=== PATIENT | female | born 2000 | race American Indian/Alaskan Native ===

== ENCOUNTER 2021-07-19 17:20 | Emergency (ER) | payer SELFPAY ==
[2021-07-19] MEDS ORDERED: diphenhydrAMINE 50 MG/ML VIAL IV ONE (19:34)
[2021-07-19] MEDS ORDERED: METOCLOPRAMIDE 10 MG/2 ML INJ IV ONE (19:34)
[2021-07-19] MEDS ORDERED: FAMOTIDINE 20 MG/2 ML INJ IV ONE (19:34)
[2021-07-19] MEDS ORDERED: SODIUM CHLORIDE 0.9% 1000 ML 1,000 ML IV ONE ×2 (19:34→23:49)
[2021-07-19] MEDS ORDERED: LACTATED RINGERS 1,000 ML IV ONE (19:34)
[2021-07-19 19:57] LABS: Basophils % (Auto) 0.3 % (0.0-1.8); Eosinophils % (Auto) 0.2 % (0.0-4.3); Hematocrit 36.2 % (30.3-42.9); Lymphocytes # (Auto) 1.4 K/mm3 (1.2-5.4); Lymphocytes % (Auto) 14.3 % (13.4-35.0); Mean Corpuscular HGB Conc 36 % (30-34); Mean Corpuscular Volume 83 fl (79-97); Monocytes # (Auto) 0.9 K/mm3 (0.0-0.8); Monocytes % (Auto) 8.8 % (0.0-7.3); Platelet Count 204 K/mm3 (140-440); Red Blood Count 4.36 M/mm3 (3.65-5.03); Red Cell Distribution Width 15.8 % (13.2-15.2)
[2021-07-19 20:16] LABS: Alanine Aminotransferase 671 units/L (7-56); Albumin 4.2 g/dL (3.9-5); Blood Urea Nitrogen 12 mg/dL (7-17); Calcium 10.5 mg/dL (8.4-10.2); Hemolysis Index 8
[2021-07-19 20:20] LABS: BUN/Creatinine Ratio 24
[2021-07-19 22:46] LABS: Bilirubin,Urine SM (Negative); Blood,Urine NEG (Negative); Color,Urine Amber (Yellow); Mucus,Urine 3+ /HPF
[2021-07-19 22:54] LABS: Ictotest,Urine Negative (Negative)
[2021-07-19] MEDS ORDERED: PROCHLORPERAZINE EDISYLATE 10 MG/2 ML VIAL IV ONE (23:49)
[2021-07-20] MEDS ORDERED: cefTRIAXone/NS 1 GM/50 ML 1 GM/50 ML BAG IV ONE (00:10)
--- NOTE | 2021-07-20 01:12 | Ultrasound Report ---
ULTRASOUND ABDOMEN, LIMITED (RIGHT UPPER QUADRANT) INDICATION: N/V; Elevated LFTs. COMPARISON: None available. FINDINGS: Pancreas: Visualized portion shows no significant abnormality. Liver: Normal. Gallbladder: Normal. Bile ducts: Normal. Common Bile Duct measures 3.3 mm. Free fluid: None. Additional Findings: None. IMPRESSION: Unremarkable right upper quadrant ultrasound. Signer Name: Gregor Sommers MD Signed: 07/20/2021 1:08 AM Workstation Name: [id number]
[2021-07-20] MEDS ORDERED: ONDANSETRON 4 MG/2 ML INJ IV ONE (02:46)
--- NOTE | 2021-07-20 02:52 | Emergency Department Report ---
ED N/V/D HPI - General Chief complaint: Nausea/Vomiting/Diarrhea Stated complaint: DEHYDRATED 12 WKS Source: patient Mode of arrival: Ambulatory Limitations: No Limitations - History of Present Illness Initial comments: Patient is a A0 21-year-old -[place] female who is approximately 12 weeks gestation and who presents to the ED with persistent intractable nausea and vomiting intermittently for the last 4 weeks, worse in the last 5 days. Patient states that she has not been able to keep anything down the last 5 days including water or food. Patient states that she has not had any problem with her since she conceived 12 weeks ago. Patient denies fever, chills, dizziness, syncope, chest pain or shortness of breath, cough, diarrhea, nasal and sinus congestion, sore throat, dysuria, urinary frequency and urgency, vaginal bleeding, vaginal discharge, urinary frequency and urgency, low back pain, change in vision or back pain. MD complaint: nausea, vomiting -: Sudden, week(s) (4) Description of Vomiting: food contents, watery Description of Diarrhea: other (no diarrhea) Associated Abdominal Pain: No Location: diffuse Radiation: none Severity: severe Pain Scale: 0 Quality: dull Consistency: intermittent Improves with: none Worsens with: eating, vomiting Context: other (Hyperemesis gravidarum; 12 weeks gestation) Associated Symptoms: denies other symptoms, headaches, loss of appetite, malaise, nausea/vomiting, weakness, other (Neurolyse fatigue). denies: my algias, chest pain, cough, diaphoresis, fever/chills, rash, dysuria, shortness of breath, syncope - Related Data Previous Rx's Medication Instructions Recorded Last Taken Type Famotidine [Pepcid] 20 mg PO BID #60 tablet 07/20/21 Unknown Rx Ondansetron [Zofran Odt] 4 mg PO Q6HR PRN #20 tab.rapdis 07/20/21 Unknown Rx Promethazine [Phenergan] 25 mg DE Q6HR PRN #20 supp.rect 07/20/21 Unknown Rx cephALEXin [Keflex] 500 mg PO Q8HR #30 cap 07/20/21 Unknown Rx Allergies Allergy/AdvReac Type Severity Reaction Status Date / Time No Known Allergies Allergy Unverified 07/19/21 18:15 ED Review of Systems ROS: Stated complaint: DEHYDRATED 12 WKS Other details as noted in HPI Constitutional: malaise, weakness Eyes: denies: eye pain, eye discharge, vision change ENT: denies: ear pain, throat pain, congestion Respiratory: denies: cough, shortness of breath, wheezing Cardiovascular: denies: chest pain, palpitations Endocrine: no symptoms reported Gastrointestinal: nausea, vomiting. denies: abdominal pain, diarrhea Genitourinary: denies: urgency, dysuria, discharge Musculoskeletal: denies: back pain, joint swelling, arthralgia Skin: denies: rash, lesions Neurological: denies: headache, weakness, paresthesias Psychiatric: denies: anxiety, depression Hematological/Lymphatic: denies: easy bleeding, easy bruising ED Past Medical Hx - Past Medical History Previous Medical History?: No - Surgical History Past Surgical History?: No - Medications Home Medications: Home Medications Medication Instructions Recorded Confirmed Last Taken Type Famotidine [Pepcid] 20 mg PO BID #60 tablet 07/20/21 Unknown Rx Ondansetron [Zofran Odt] 4 mg PO Q6HR PRN #20 tab.rapdis 07/20/21 Unknown Rx Promethazine [Phenergan] 25 mg DE Q6HR PRN #20 supp.rect 07/20/21 Unknown Rx cephALEXin [Keflex] 500 mg PO Q8HR #30 cap 07/20/21 Unknown Rx ED Physical Exam - General Limitations: No Limitations General appearance: alert, in no apparent distress - Head Head exam: Present: atraumatic, normocephalic, normal inspection - Eye Eye exam: Present: normal appearance, PERRL, EOMI Pupils: Present: normal accommodation - ENT ENT exam: Present: normal orophraynx, mucous membranes dry, TM's normal bilaterally, normal external ear exam - Neck Neck exam: Present: normal inspection, full ROM - Respiratory Respiratory exam: Present: normal lung sounds bilaterally. Absent: respiratory distress, wheezes, rales, chest wall tenderness, accessory muscle use, decreased breath sounds, prolonged expiratory - Cardiovascular Cardiovascular Exam: Present: normal rhythm, tachycardia, normal heart sounds. Absent: systolic murmur, diastolic murmur, rubs, gallop - GI/Abdominal GI/Abdominal exam: Present: soft, normal bowel sounds. Absent: tenderness, guarding, rebound, hyperactive bowel sounds, organomegaly - Extremities Exam Extremities exam: Present: normal inspection, full ROM, normal capillary refill - Back Exam Back exam: Present: normal inspection, full ROM. Absent: tenderness, CVA tenderness (R), CVA tenderness (L), muscle spasm, paraspinal tenderness - Neurological Exam Neurological exam: Present: alert, oriented X3, CN II-XII intact, normal gait, reflexes normal - Psychiatric Psychiatric exam: Present: normal affect, normal mood, anxious - Skin Skin exam: Present: warm, dry, intact, normal color. Absent: rash ED Course Vital Signs 07/19/21 07/19/21 07/20/21 18:15 18:35 03:44 Temperature 97.9 F 98.4 F 98.8 F Pulse Rate 148 H 129 H 98 H Respiratory 18 16 16 Rate Blood Pressure 123/80 Blood Pressure 137/95 141/72 [Right] O2 Sat by Pulse 98 99 100 Oximetry ED Medical Decision Making - Lab Data Result diagrams: 07/19/21 19:41 07/19/21 19:41 - Radiology Data Radiology results: report reviewed, image reviewed [address] [address] Ultrasound Report Signed Patient: ANABELL FULLER MR#: [id number] : 2000 Acct:[id number] Age/Sex: 21 / F ADM Date: 07/19/21 Loc: ED Attending Dr: Ordering Physician: LIEN GAN Date of Service: 07/19/21 Procedure(s): US abdomen limited Accession Number(s): [id number] cc: LIEN GAN ULTRASOUND ABDOMEN, LIMITED (RIGHT UPPER QUADRANT) INDICATION: N/V; Elevated LFTs. COMPARISON: None available. FINDINGS: Pancreas: Visualized portion shows no significant abnormality. Liver: Normal. Gallbladder: Normal. Bile ducts: Normal. Common Bile Duct measures 3.3 mm. Free fluid: None. Additional Findings: None. IMPRESSION: Unremarkable right upper quadrant ultrasound. Signer Name: Gregor Sommers MD Signed: 07/20/2021 1:08 AM Workstation Name: [id number] Transcribed By: ES Dictated By: Gregor Sommers MD Electronically Authenticated By: Gregor Sommers MD Signed Date/Time: 07/20/21107 DD/ TD/TT: - Medical Decision Making This is a A0 21-year-old -[place] female who is approximately 12 weeks gestation and who presents to the ED with persistent intractable nausea and vomiting intermittently for the last 4 weeks, worse in the last 5 days. Patient states that she has not been able to keep anything down the last 5 days including water or food. Patient states that she has not had any problem with her since she conceived 12 weeks ago. In the ED, patient is alert and oriented x3 and is not in any distress but is tachycardic but afebrile, and anxious in triage. Patient was treated in the ED with antiemetics, antacids, and given normal saline 2 L IV bolus, in addition to 1 L of lactated Ringer's luís ution. Lab test results were reviewed and showed hyponatremia 132 mmol/L, hypokalemia of 3.2 mmol/L, hypochloremia of 90.5 mmol/L, AST of 286, ALT of 671, alk phos 141, total protein of 8.4, and total bilirubin of 2.60. Urinalysis showed acute urinary tract infection. Patient also received Rocephin 1 g IV x1. This results are likely due to the patient's dehydration following intractable nausea and vomiting without any fluid intake. On reevaluation, patient's tachycardia improved significantly to 100 bpm, and patient passed oral fluid challenge in the ED. Patient was therefore discharged home on antiemetics, antacids and oral antibiotics and advised to follow-up with with her [employer] physician in 3 to 5 days for reevaluation. Patient is advised return to the ED immediately if symptoms get worse. - Differential Diagnosis Dehydration; anxiety; hyperemesis gravidarum; UTI; GERD; Critical care attestation.: If time is entered above; I have spent that time in minutes in the direct care of this critically ill patient, excluding procedure time. ED Disposition Clinical Impression: Hyperemesis gravidarum with dehydration, Acute urinary tract infection, Transaminitis Disposition: 01 HOME / SELF CARE / HOMELESS Is pt being admited?: No Does the pt Need Aspirin: No Condition: Stable Instructions: Hyperemesis Gravidarum, Urinary Tract Infection, Adult, [id number], Morning Sickness, [id number] Additional Instructions: Maintain a clear liquid diet for 1224 hrs., drink plenty of fluids, take medication as needed for nausea and vomiting, take the antibiotics for acute urinary tract infection. Follow-up with your [employer]CHANGE TE[employer] physician in 3 to 5 days for reevaluation. Return to the ED immediately if symptoms get worse. Prescriptions: cephALEXin [Keflex] 500 mg PO Q8HR #30 cap Famotidine [Pepcid] 20 mg PO BID #60 tablet Promethazine [Phenergan] 25 mg DE Q6HR PRN #20 supp.rect PRN Reason: Nausea Ondansetron [Zofran Odt] 4 mg PO Q6HR PRN #20 tab.rapdis PRN Reason: Nausea Referrals: YULIANA DREW MD [Staff Physician] - 3-5 Days Forms: Work/School Release Form(ED) Time of Disposition: 03:01 Print Language: BELGIAN
[2021-07-20 03:45] VITALS: BP 141/72
== END 2021-07-20 03:44 | disposition home or self-care (01) ==
LOC: ED 17:20
DX: O21.1 Hyperemesis gravidarum with metabolic disturbance (principal); O23.41 Unspecified infection of urinary tract in pregnancy, first trimester; O26.891 Other specified pregnancy related conditions, first trimester; R74.01 Elevation of levels of liver transaminase levels; Z3A.12 12 weeks gestation of pregnancy; Z79.899 Other long term (current) drug therapy
CPT/HCPCS: 36415; 76705; 80053; 81001; 83690; 84702; 85025; 87086; 96361; 96365; 96375; 99284; J1200; J2405; J2765; J7030; J7120

== ENCOUNTER 2022-01-21 03:12 | Inpatient (IN) | payer OTHER ==
--- NOTE | 2022-01-21 06:13 | Ultrasound Report ---
OBSTETRIC ULTRASOUND INDICATION: presentation, JUNIOR, EFW COMPARISON: No prior relevant imaging studies are available for comparison. TECHNIQUE: Transabdominal imaging was performed. FINDINGS: Single viable intrauterine is identified. lie: Cephalic. Heart rate: 127 bpm. measurements are as follows: Biparietal diameter 9.7 cm, 39 weeks 3 days Head circumference 34.4 cm, 39 weeks 5 days Abdominal circumference 35.1 cm, 39 weeks 0 days Femur length 7.8 cm, 39 weeks 5 days Estimated weight 3740 g. Amniotic fluid index is 11.3 cm, within normal limits. No placental abnormalities are seen. CONCLUSION: Single viable intrauterine currently in cephalic position with estimated weight of 3740 g. Amniotic fluid index is within normal limits. Signer Name: Farhat Marshall MD Signed: 01/21/2022 6:09 AM Workstation Name: [id number]
[2022-01-21] MEDS ORDERED: LIDOCAINE (2%) 20 MG/1 ML VIAL 20 ML MDV INFILTRATI NR (07:07)
--- NOTE | 2022-01-21 07:07 | History and Physical Report ---
History of Present Illness Date of examination: 01/21/22 Date of admission: 01/21/2022 Chief complaint: Contractions History of present illness: 21 y/o at 39 weeks presents to OBT reporting regular and painful CTX. No VB or LOF. Good FM. In OBT, SVE= 3/50%/-2 --> 4/50%/-2. She is admitted to L&D in labor. Past History Past Medical History: no pertinent history Past Surgical History: no surgical history Family/Genetic History: none Social history: no significant social history - Obstetrical History Expected Date of Delivery: 01/28/22 Actual Gestation: 39 Week(s) 0 Day(s) : 1 Para: 0 Hx # Term Pregnancies: 0 Medications and Allergies Allergies Allergy/AdvReac Type Severity Reaction Status Date / Time No Known Allergies Allergy Unverified 07/19/21 18:15 Home Medications Medication Instructions Recorded Confirmed Last Taken Type Famotidine [Pepcid] 20 mg PO BID #60 tablet 07/20/21 Unknown Rx Ondansetron [Zofran Odt] 4 mg PO Q6HR PRN #20 tab.rapdis 07/20/21 Unknown Rx Promethazine [Phenergan] 25 mg PA Q6HR PRN #20 supp.rect 07/20/21 Unknown Rx cephALEXin [Keflex] 500 mg PO Q8HR #30 cap 07/20/21 Unknown Rx Review of Systems All systems: negative - Vital Signs Vital signs: Vital Signs Pulse BP Pulse Ox 88 117/75 98 01/21/22 04:05 01/21/22 04:05 01/21/22 04:05 Temp Pulse Resp BP Pulse Ox 78 117/75 98 01/21/22 07:00 01/21/22 04:05 01/21/22 07:00 - Physical Exam Breasts: Positive: normal Cardiovascular: Regular rate Lungs: Positive: Normal air movement Abdomen: Positive: normal appearance Genitourinary (Female): Positive: normal external genitalia Vulva: both: normal Vagina: Positive: normal moisture Cervix: Positive: lesion Uterus: Positive: enlarged Adnexa: both: normal Anus/Rectum: Positive: normal perianal skin Extremities: Positive: normal Deep Tendon Reflex Grade: Normal +2 - Obstetrical FHR: category 1 Uterine Contraction Monitor Mode: Palpation Cervical Dilatation: 4 Cervical Effacement Percentage: 50 station: -2 Uterine Contraction Frequency (min): 5 Uterine Contraction Pattern: Regular Uterine Contraction Intensity: Moderate Results All other labs normal. Ultrasound: report reviewed (OB US Limited= SLIUP. Vertex. Fundal placenta. EFW= 3740 g (75th %-ile). JUNIOR= 11.3 cm.) Assessment and Plan - Patient Problems (1) 39 weeks gestation of Current Visit: Yes Status: Acute Plan to address problem: care is up-to-date at [facility]. GBS is (-). Morning team to obtain records from office. (2) Spontaneous onset of labor Current Visit: Yes Status: Acute Plan to address problem: Admit to L&D. Epidural prn. Augment with Pitocin. AROM when possible.
[2022-01-21] MEDS ORDERED: ePHEDrine SULFATE 50 MG/1 ML INJ IV PRN ×2 (08:00→15:15)
[2022-01-21] MEDS ORDERED: BUTORPHANOL 2 MG/1 ML INJ IV PRN (08:00)
[2022-01-21] MEDS ORDERED: ACETAMINOPHEN 325 MG TAB PO PRN (08:00)
[2022-01-21] MEDS ORDERED: fentaNYL 100 MCG/2 ML INJ IV PRN (08:00)
[2022-01-21] MEDS ORDERED: METHYLERGONOVINE MALEATE 0.2 MG/ML VIAL IM PRN (08:00)
[2022-01-21] MEDS ORDERED: ONDANSETRON 4 MG/2 ML INJ IV PRN (08:00)
[2022-01-21] MEDS ORDERED: OXYTOCIN DRIP 30 UNITS/500 ML BAG IV SCH (08:00)
[2022-01-21] MEDS ORDERED: CARBOPROST TROMETHAMINE 250 MCG/1 ML INJ IM PRN (08:00)
[2022-01-21] MEDS ORDERED: TERBUTALINE 1 MG/1 ML INJ SUB-Q PRN (08:00)
[2022-01-21 08:29] LABS: Hematocrit 25.3 % (30.3-42.9); Hemoglobin 8.5 gm/dl (10.1-14.3); Mean Corpuscular HGB Conc 34 % (30-34); Mean Corpuscular Volume 76 fl (79-97); Platelet Count 160 K/mm3 (140-440); Red Blood Count 3.34 M/mm3 (3.65-5.03); Red Cell Distribution Width 18.5 % (13.2-15.2)
[2022-01-21] MEDS: LACTATED RINGERS 1,000 ML IV SCH ×2 (10:00→18:58)
--- NOTE | 2022-01-21 10:56 | Progress Note ---
Assessment and Plan A: IUP@ 39.1 wks GBS neg P: Continue monitoring Epidural as requested Anticipate Subjective - Subjective Date of service: 01/21/22 Principal diagnosis: IUP@39.1 wks Patient reports: movement normal, contractions Objective - Vital Signs Vital Signs: Vital Signs - 12hr 01/21/22 01/21/22 01/21/22 04:05 04:10 04:15 Temperature Pulse Rate 88 93 H 90 Respiratory Rate Blood Pressure 117/75 Blood Pressure [Right] O2 Sat by Pulse 98 99 99 Oximetry O2 Sat by Pulse Oximetry [ Bilateral Throughout] 01/21/22 01/21/22 01/21/22 04:20 04:25 04:30 Temperature Pulse Rate 88 87 87 Respiratory Rate Blood Pressure Blood Pressure [Right] O2 Sat by Pulse 98 98 98 Oximetry O2 Sat by Pulse Oximetry [ Bilateral Throughout] 01/21/22 01/21/22 01/21/22 04:35 04:40 04:45 Temperature Pulse Rate 92 H 95 H 95 H Respiratory Rate Blood Pressure Blood Pressure [Right] O2 Sat by Pulse 98 98 99 Oximetry O2 Sat by Pulse Oximetry [ Bilateral Throughout] 01/21/22 01/21/22 01/21/22 04:50 04:55 05:00 Temperature Pulse Rate 87 81 80 Respiratory Rate Blood Pressure Blood Pressure [Right] O2 Sat by Pulse 99 99 98 Oximetry O2 Sat by Pulse Oximetry [ Bilateral Throughout] 01/21/22 01/21/22 01/21/22 05:05 05:10 05:15 Temperature Pulse Rate 82 89 89 Respiratory Rate Blood Pressure Blood Pressure [Right] O2 Sat by Pulse 98 98 89 Oximetry O2 Sat by Pulse Oximetry [ Bilateral Throughout] 01/21/22 01/21/22 01/21/22 05:20 05:25 05:30 Temperature Pulse Rate 103 H 100 H 94 H Respiratory Rate Blood Pressure Blood Pressure [Right] O2 Sat by Pulse 99 100 98 Oximetry O2 Sat by Pulse Oximetry [ Bilateral Throughout] 01/21/22 01/21/22 01/21/22 05:35 05:40 05:45 Temperature Pulse Rate 102 H 88 86 Respiratory Rate Blood Pressure Blood Pressure [Right] O2 Sat by Pulse 99 99 98 Oximetry O2 Sat by Pulse Oximetry [ Bilateral Throughout] 01/21/22 01/21/22 01/21/22 05:50 05:55 06:00 Temperature Pulse Rate 88 88 92 H Respiratory Rate Blood Pressure Blood Pressure [Right] O2 Sat by Pulse 98 97 98 Oximetry O2 Sat by Pulse Oximetry [ Bilateral Throughout] 01/21/22 01/21/22 01/21/22 06:05 06:10 06:15 Temperature Pulse Rate 103 H 95 H 98 H Respiratory Rate Blood Pressure Blood Pressure [Right] O2 Sat by Pulse 98 100 98 Oximetry O2 Sat by Pulse Oximetry [ Bilateral Throughout] 01/21/22 01/21/22 01/21/22 06:20 06:25 06:30 Temperature Pulse Rate 79 97 H 82 Respiratory Rate Blood Pressure Blood Pressure [Right] O2 Sat by Pulse 97 98 97 Oximetry O2 Sat by Pulse Oximetry [ Bilateral Throughout] 01/21/22 01/21/22 01/21/22 06:35 06:40 06:45 Temperature Pulse Rate 98 H 88 90 Respiratory Rate Blood Pressure Blood Pressure [Right] O2 Sat by Pulse 98 98 97 Oximetry O2 Sat by Pulse Oximetry [ Bilateral Throughout] 01/21/22 01/21/22 01/21/22 06:50 06:55 07:00 Temperature Pulse Rate 84 102 H 78 Respiratory Rate Blood Pressure Blood Pressure [Right] O2 Sat by Pulse 98 97 98 Oximetry O2 Sat by Pulse Oximetry [ Bilateral Throughout] 01/21/22 01/21/22 01/21/22 07:05 07:10 07:15 Temperature Pulse Rate 82 114 H 113 H Respiratory Rate Blood Pressure Blood Pressure [Right] O2 Sat by Pulse 98 98 99 Oximetry O2 Sat by Pulse Oximetry [ Bilateral Throughout] 01/21/22 01/21/22 01/21/22 07:20 07:25 07:30 Temperature Pulse Rate 87 94 H 90 Respiratory Rate Blood Pressure Blood Pressure [Right] O2 Sat by Pulse 99 98 98 Oximetry O2 Sat by Pulse Oximetry [ Bilateral Throughout] 01/21/22 01/21/22 01/21/22 07:35 08:03 08:07 Temperature Pulse Rate 84 84 Respiratory Rate Blood Pressure Blood Pressure [Right] O2 Sat by Pulse 98 98 Oximetry O2 Sat by Pulse 98 Oximetry [ Bilateral Throughout] 01/21/22 01/21/22 01/21/22 08:09 08:12 08:17 Temperature 98.2 F Pulse Rate 82 85 82 Respiratory 12 Rate Blood Pressure Blood Pressure 122/79 [Right] O2 Sat by Pulse 98 98 98 Oximetry O2 Sat by Pulse Oximetry [ Bilateral Throughout] 01/21/22 01/21/22 01/21/22 08:22 08:27 08:32 Temperature Pulse Rate 83 87 89 Respiratory Rate Blood Pressure Blood Pressure [Right] O2 Sat by Pulse 98 97 97 Oximetry O2 Sat by Pulse Oximetry [ Bilateral Throughout] 01/21/22 01/21/22 01/21/22 08:37 08:42 08:47 Temperature Pulse Rate 74 74 76 Respiratory Rate Blood Pressure Blood Pressure [Right] O2 Sat by Pulse 99 99 97 Oximetry O2 Sat by Pulse Oximetry [ Bilateral Throughout] 01/21/22 01/21/22 01/21/22 08:52 08:57 09:02 Temperature Pulse Rate 76 83 76 Respiratory Rate Blood Pressure Blood Pressure [Right] O2 Sat by Pulse 98 97 97 Oximetry O2 Sat by Pulse Oximetry [ Bilateral Throughout] 01/21/22 01/21/22 01/21/22 09:07 09:12 09:17 Temperature Pulse Rate 73 82 84 Respiratory Rate Blood Pressure Blood Pressure [Right] O2 Sat by Pulse 97 97 97 Oximetry O2 Sat by Pulse Oximetry [ Bilateral Throughout] 01/21/22 01/21/22 01/21/22 09:22 09:27 09:32 Temperature Pulse Rate 85 84 77 Respiratory Rate Blood Pressure Blood Pressure [Right] O2 Sat by Pulse 98 97 97 Oximetry O2 Sat by Pulse Oximetry [ Bilateral Throughout] 01/21/22 01/21/22 01/21/22 09:37 09:42 09:47 Temperature Pulse Rate 98 H 83 80 Respiratory Rate Blood Pressure Blood Pressure [Right] O2 Sat by Pulse 98 98 97 Oximetry O2 Sat by Pulse Oximetry [ Bilateral Throughout] 01/21/22 01/21/22 01/21/22 09:52 09:57 10:02 Temperature Pulse Rate 88 91 H 79 Respiratory Rate Blood Pressure Blood Pressure [Right] O2 Sat by Pulse 97 97 97 Oximetry O2 Sat by Pulse Oximetry [ Bilateral Throughout] 01/21/22 01/21/22 01/21/22 10:07 10:12 10:17 Temperature Pulse Rate 92 H 85 88 Respiratory Rate Blood Pressure Blood Pressure [Right] O2 Sat by Pulse 98 98 98 Oximetry O2 Sat by Pulse Oximetry [ Bilateral Throughout] 01/21/22 01/21/22 01/21/22 10:22 10:27 10:32 Temperature Pulse Rate 81 95 H 82 Respiratory Rate Blood Pressure Blood Pressure [Right] O2 Sat by Pulse 97 97 99 Oximetry O2 Sat by Pulse Oximetry [ Bilateral Throughout] 01/21/22 01/21/22 01/21/22 10:37 10:42 10:47 Temperature Pulse Rate 80 91 H 89 Respiratory Rate Blood Pressure Blood Pressure [Right] O2 Sat by Pulse 97 98 97 Oximetry O2 Sat by Pulse Oximetry [ Bilateral Throughout] - Exam Breasts: normal Abdomen: Present: normal appearance, soft, normal bowel sounds Vulva: both: normal Uterus: Present: normal FHR: auscultation normal, category 1 Uterine Contraction Monitor Mode: External Cervical Dilatation: 5 Cervical Effacement Percentage: 60 station: -2 Uterine Contraction Pattern: Irregular Uterine Tone Measurement Phase: Resting Uterine Contraction Intensity: Moderate Extremities: normal - Labs Labs: Abnormal Labs 01/21/22 07:30 RBC 3.34 L Hgb 8.5 L Hct 25.3 L MCV 76 L MCH 25 L RDW 18.5 H Laboratory Results - last 24 hr 01/21/22 01/21/22 01/21/22 07:30 07:30 09:20 WBC 10.3 RBC 3.34 L Hgb 8.5 L Hct 25.3 L MCV 76 L MCH 25 L MCHC 34 RDW 18.5 H Plt Count 160 SARS-CoV-2 (PCR) Negative Blood Type O POSITIVE Antibody Screen Negative
[2022-01-21] MEDS ORDERED: NALOXONE 2 MG/2 ML INJ IV PRN (15:15)
[2022-01-21] MEDS: fentaNYL-BUPIV 2 MCG/ML-0.125% 200 MCG/100 ML BAG EPIDURAL SCH ×2 (15:33→21:31)
--- NOTE | 2022-01-21 15:55 | Anesthesia Consultation ---
Anesthesia Consult and Med Hx Date of service: 01/21/22 - Airway Anesthetic Teeth Evaluation: Poor ROM Head & Neck: Adequate Mental/Hyoid Distance: Adequate Mallampati Class: Class II Intubation Access Assessment: Good - Pulmonary Exam CTA: Yes - Cardiac Exam Cardiac Exam: RRR - Pre-Operative Health Status ASA Pre-Surgery Classification: ASA2 Proposed Anesthetic Plan: Epidural - Pulmonary Hx Smoking: No Hx Asthma: No COPD: No Hx Pneumonia: No - Cardiovascular System Hx Hypertension: No - Central Nervous System Hx Seizures: No Hx Psychiatric Problems: No - Endocrine Hx Renal Disease: No Hx End Stage Renal Disease: No Hx Hypothyroidism: No Hx Hyperthyroidism: No - Hematic Hx Anemia: Yes Hx Sickle Cell Disease: No - Other Systems Hx Alcohol Use: No Hx Substance Use: No
--- NOTE | 2022-01-21 15:56 | Progress Note ---
Labor Epidural - Labor Epidural Start Time: 10:50 Stop Time: 11:01 Performed by:: SHAWN CALHOUN Procedure: Patient is requesting epidural for labor pain. H&P and labs reviewed. Procedure explained, questions answered, consent obtained. Patient placed in sitting position with monitors applied. Timeout performed immediately before start of procedure. Prep/drape in usual sterile fashion. Skin localized 3 mL 1% lidocaine at L[3]-L[4] interspace. 17-gauge Touhy epidural needle advanced to CHERELLE with saline at [8] cm. No blood/CSF noted via epidural needle. Epidural catheter advanced to [12] cm. Negative aspiration for blood and CSF via catheter, negative response to test dose 3 ml 1.5% lidocaine w/ Epi. Sterile dressing applied followed by tape reinforcement. Patient tolerated procedure well. No immediate complications noted.
[2022-01-21] MEDS ORDERED: MINERAL OIL 30 ML ORAL LIQD ONE (19:17)
[2022-01-21] MEDS ORDERED: LIDOCAINE (2%) 20 MG/1 ML VIAL 20 ML MDV INFILTRATI ONE (19:35)
[2022-01-21 21:23] LABS: Creatinine,Urine 77.1 mg/dL (0.1-20.0)
[2022-01-21 22:23] LABS: Basophils % (Auto) 0.2 % (0.0-1.8); Eosinophils % (Auto) 0.1 % (0.0-4.3); Lymphocytes % (Auto) 7.4 % (13.4-35.0); Mean Corpuscular HGB Conc 31 % (30-34); Mean Corpuscular Volume 76 fl (79-97); Monocytes # (Auto) 0.7 K/mm3 (0.0-0.8); Monocytes % (Auto) 5.2 % (0.0-7.3); Platelet Count 155 K/mm3 (140-440); Red Blood Count 4.19 M/mm3 (3.65-5.03); Red Cell Distribution Width 18.6 % (13.2-15.2)
[2022-01-21 22:55] LABS: Alanine Aminotransferase 11 units/L (7-56); Albumin 3.9 g/dL (3.9-5); Blood Urea Nitrogen 7 mg/dL (7-17); Calcium 9.8 mg/dL (8.4-10.2); Hemolysis Index 0; Uric Acid 5.1 mg/dL (3.5-7.6)
[2022-01-21 22:57] LABS: BUN/Creatinine Ratio 12
--- NOTE | 2022-01-22 00:11 | Procedure Note ---
OB Delivery Note - Delivery Date of Delivery: 01/22/22 Surgeon: ANNAMARIA SORTO Estimated blood loss: 300cc - Vaginal Delivery position: OA Intrapartum events: preeclampsia Delivery induction: none Delivery augmentation: rupture of membranes, pitocin Delivery monitor: external FHT, external uterine, internal FHT, internal uterine Route of delivery: Delivery placenta: spontaneous Delivery cord: nuchal cord, 3 umbilical vessels Episiotomy: midline Delivery laceration: 2nd degree Delivery repair: vicryl Anesthesia: local, epidural - A at 1 minute: 8 at 5 minutes: 9 Infant Gender: Male
[2022-01-22] MEDS ORDERED: LANOLIN/ZINC/DIMETHICONE (LANSINOH) 7 GM TP PRN (00:12)
[2022-01-22] MEDS ORDERED: ACETAMINOPHEN 325 MG TAB PO PRN (00:12)
[2022-01-22] MEDS ORDERED: BENZOCAINE/MENTHOL 20/0.5% TOP SPRAY 56 GM TP PRN (00:12)
[2022-01-22] MEDS ORDERED: ONDANSETRON 4 MG/2 ML INJ IV PRN (00:12)
[2022-01-22] MEDS ORDERED: diphenhydrAMINE 25 MG CAP PO PRN (00:12)
[2022-01-22] MEDS ORDERED: MAGNESIUM HYDROXIDE (MOM) ORAL LIQD UDC PO PRN (00:12)
[2022-01-22] MEDS ORDERED: PROMETHAZINE 25 MG TAB PO PRN (00:12)
--- NOTE | 2022-01-22 00:12 | Event Note ---
Date: 01/21/22 BP >= 140/90 No TAVARES, diplopia, RUQ pain, or scotomata. Urine Protein to Creatinine Ratio (UPCR)= 3.80. There is significant proteinuria. Estimated 24 hour urine protein= 5,159 mg I believe that this patient carries the diagnosis of preeclampsia.
--- NOTE | 2022-01-22 02:16 | Post Anesthesia Evaluation ---
- Post Anesthesia Evaluation Patient Participated: Yes Airway Patent: Yes Stable Respiratory Function: Yes Nausea/Vomiting: No Temp > 96.8F: Yes Pain Manageable: Yes Adequeate Hydration: Yes Anesthesia Complications: No Block Receding Appropriately: Yes Patient on Ventilator: No
[2022-01-22 02:35] LABS: Hematocrit 24.6 % (30.3-42.9); Mean Corpuscular HGB Conc 33 % (30-34); Mean Corpuscular Volume 76 fl (79-97); Platelet Count 150 K/mm3 (140-440); Red Blood Count 3.24 M/mm3 (3.65-5.03); Red Cell Distribution Width 18.3 % (13.2-15.2)
[2022-01-22] MEDS: HYDROcodone/ACETAMINOPHEN 5-325 MG TAB PO PRN ×3 (04:49→22:48)
[2022-01-22] MEDS: WITCH HAZEL/ GLYCERIN PAD TP PRN (04:51)
[2022-01-22] MEDS: DOCUSATE SODIUM 100 MG CAP PO SCH ×2 (09:46→22:48)
[2022-01-22] MEDS: PRENATAL VIT27-FE FUMARATE-FOLIC ACID VIT TAB PO SCH (09:46)
[2022-01-22 12:27] LABS: Basophils % (Auto) 0.1 % (0.0-1.8); Eosinophils % (Auto) 0.2 % (0.0-4.3); Hematocrit 25.2 % (30.3-42.9); Hemoglobin 8.2 gm/dl (10.1-14.3); Lymphocytes # (Auto) 1.8 K/mm3 (1.2-5.4); Lymphocytes % (Auto) 12.5 % (13.4-35.0); Mean Corpuscular HGB Conc 33 % (30-34); Mean Corpuscular Volume 76 fl (79-97); Monocytes # (Auto) 0.8 K/mm3 (0.0-0.8); Monocytes % (Auto) 5.5 % (0.0-7.3); Platelet Count 153 K/mm3 (140-440); Red Cell Distribution Width 18.3 % (13.2-15.2)
[2022-01-22] MEDS: AMOXICILLIN/K CLAV 875/125MG TAB PO SCH (16:14)
--- NOTE | 2022-01-22 18:32 | Event Note ---
Date: 01/22/22 pt seen with maternal tacchy and fundal tenderness mild noted. Augmentin added with leucocytosis seen, possibly early signs of endomyometritis. Pt remains afebrile. Routine care otherwise. Pt is breast and bottle feeding and pain controlled with motrin med. Voiding without difficulty. Pain mostly at vaginal area.
[2022-01-23] MEDS: AMOXICILLIN/K CLAV 875/125MG TAB PO SCH ×2 (04:53→17:38)
[2022-01-23] MEDS: PRENATAL VIT27-FE FUMARATE-FOLIC ACID VIT TAB PO SCH (11:26)
[2022-01-23] MEDS: DOCUSATE SODIUM 100 MG CAP PO SCH ×2 (11:27→21:15)
--- NOTE | 2022-01-23 12:34 | Progress Note ---
Assessment and Plan PPD#1 with asymptomatic anemia 1. continue augmentin and repeat cbc now 2. Will discharge pt home later today if wbc improving 3. Routine care Subjective Date of service: 01/23/22 Principal diagnosis: PPD#1 Interval history: pt has no complaints. Pt is breast feeding, denies pelvic pain or heavy vag bleed. Pt is currently taking the augmentin med. denies dysuria. Objective - Constitutional Vitals: Vital Signs - 12hr 01/23/22 01/23/22 08:00 08:24 Temperature 98.2 F Pulse Rate 89 Respiratory 18 Rate Blood Pressure 117/72 O2 Sat by Pulse 99 Oximetry O2 Sat by Pulse 100 Oximetry [ Bilateral Throughout] General appearance: Present: no acute distress - Neck Neck: normal ROM - Respiratory Respiratory effort: normal - Breasts Breasts: deferred - Cardiovascular Rhythm: regular Extremities: No edema - Gastrointestinal General gastrointestinal: Present: soft, non-tender - Genitourinary Female genitourinary: other (Fundus non-tender, lochia small) - Integumentary Integumentary: warm, dry - Labs CBC & Chem 7: 01/22/22 12:10 01/21/22 21:50 Medications & Allergies - Medications Allergies/Adverse Reactions: Allergies No Known Allergies Allergy (Unverified 07/19/21 18:15) Home Medications: Home Medications Medication Instructions Recorded Confirmed Last Taken Type Famotidine [Pepcid] 20 mg PO BID #60 tablet 07/20/21 01/23/22 Unknown Rx Ondansetron [Zofran Odt] 4 mg PO Q6HR PRN #20 tab.rapdis 07/20/21 01/23/22 Unknown Rx Promethazine [Phenergan] 25 mg NE Q6HR PRN #20 supp.rect 07/20/21 01/23/22 Unknown Rx cephALEXin [Keflex] 500 mg PO Q8HR #30 cap 07/20/21 01/23/22 Unknown Rx Active Medications: Generic Name Dose Route Start Last Admin Trade Name Freq PRN Reason Stop Dose Admin Acetaminophen 650 mg 01/22/22 00:12 Acetaminophen 325 Mg Tab PO Q4H PRN Pain MILD(1-3)/Fever >100.5/TAVARES Hydrocodone Bitart/Acetaminophen 2 each 01/22/22 00:12 01/22/22 22:48 Hydrocodone/Acetaminophen 5-325 Mg Tab PO 2 each Q6H PRN Administration Pain, Moderate (4-6) Amoxicillin/Clavulanate Potassium 1 each 01/23/22 16:00 Amoxicillin/K Clav 875/125mg Tab PO Q12H [facility] Protocol Benzocaine/Menthol 1 spray 01/22/22 00:12 01/22/22 04:51 Benzocaine/Menthol 20/0.5% Top [place] 56 Gm TP 1 spray PRN PRN Administration Episiotomy Pain Butorphanol Tartrate 1 mg 01/21/22 08:00 Butorphanol 2 Mg/1 Ml Inj IV Q2H PRN Pain, Moderate(4-6) LABOR PAIN Carboprost Tromethamine 250 mcg 01/21/22 08:00 Carboprost Tromethamine 250 Mcg/1 Ml Inj IM ONCE PRN Uterine Bleeding Diphenhydramine HCl 25 mg 01/22/22 00:12 Diphenhydramine 25 Mg Cap PO Q6H PRN Itching Docusate Sodium 100 mg 01/22/22 10:00 01/23/22 11:27 Docusate Sodium 100 Mg Cap PO 100 mg BID BLUE Administration Ephedrine Sulfate 10 mg 01/21/22 15:15 Ephedrine Sulfate 50 Mg/1 Ml Inj IV Q2M PRN Hypotension Fentanyl 100 mcg 01/21/22 08:00 Fentanyl 100 Mcg/2 Ml Inj IV Q2H PRN Pain,Severe (7-10) LABOR PAIN Lactated Ringer's 1,000 mls @ 125 mls/hr 01/21/22 08:00 01/21/22 18:58 Lactated Ringers IV 125 mls/hr DIRECT BLUE Administration Oxytocin/Sodium Chloride 30 units in 500 mls @ 40 mls/hr 01/21/22 08:00 01/21/22 23:35 Pitocin/Ns 30 Unit/500ml IV 165 mls/hr TITR BLUE 165 mls/hr Titration Protocol Fentanyl/Bupivacaine/Sodium Chlor 200 mcg in 100 mls @ 12 mls/hr 01/21/22 16:00 01/22/22 00:36 Fentanyl-Bupiv 2 Mcg/Ml-0.125% EPIDURAL 0 mls/hr TITR BLUE Infusion Protocol Magnesium Hydroxide 30 ml 01/22/22 00:12 Magnesium Hydroxide (Mom) Oral Liqd Udc PO HS PRN Constipation Methylergonovine Maleate 0.2 mg 01/21/22 08:00 Methylergonovine Maleate 0.2 Mg/Ml Vial IM ONCE PRN Uterine Bleeding Multi-Ingredient Ointment 1 applic 01/22/22 00:12 Lanolin/Zinc/Dimethicone (Lansinoh) 7 Gm TP PRN PRN Sore Nipples Multivitamins/Iron/Calcium 1 each 01/22/22 10:00 01/23/22 11:26 [id number] Fumarate-Folic Acid Vit Tab PO 1 each QDAY BLUE Administration Naloxone HCl 0.2 mg 01/21/22 15:15 Naloxone 2 Mg/2 Ml Inj IV Q5M PRN Respiratory sedation Ondansetron HCl 4 mg 01/22/22 00:12 Ondansetron 4 Mg/2 Ml Inj IV Q8H PRN Nausea And Vomiting Promethazine HCl 25 mg 01/22/22 00:12 Promethazine 25 Mg Tab PO Q6H PRN Nausea And Vomiting Sodium Chloride 10 ml 01/22/22 01:00 Sodium Chloride 0.9% 10 Ml Flush Syringe IV PRN PRN LINE FLUSH Terbutaline Sulfate 0.25 mg 01/21/22 08:00 Terbutaline 1 Mg/1 Ml Inj SUB-Q ONCE PRN Hyperstimulation/Hypertonicity Witch Gloria/Glycerin 1 each 01/22/22 00:12 01/22/22 04:51 Witch Gloria/ Glycerin Pad TP 1 each PRN PRN Administration Hemorrhoid/cleansing/soothing
[2022-01-23 16:22] LABS: Basophils % (Auto) 0.1 % (0.0-1.8); Eosinophils # (Auto) 0.1 K/mm3 (0.0-0.4); Eosinophils % (Auto) 0.5 % (0.0-4.3); Hematocrit 24.2 % (30.3-42.9); Hemoglobin 7.8 gm/dl (10.1-14.3); Lymphocytes # (Auto) 2.1 K/mm3 (1.2-5.4); Lymphocytes % (Auto) 15.8 % (13.4-35.0); Mean Corpuscular HGB Conc 32 % (30-34); Mean Corpuscular Volume 76 fl (79-97); Monocytes # (Auto) 0.9 K/mm3 (0.0-0.8); Platelet Count 148 K/mm3 (140-440); Red Blood Count 3.19 M/mm3 (3.65-5.03); Red Cell Distribution Width 18.5 % (13.2-15.2)
[2022-01-23] MEDS: WITCH HAZEL/ GLYCERIN PAD TP PRN (17:38)
--- NOTE | 2022-01-23 18:27 | Ultrasound Report ---
ULTRASOUND PELVIS INDICATION / CLINICAL INFORMATION: retained products with worsening anemia. 2 days status post vagina l delivery. TECHNIQUE: Transabdominal. Duplex Color Doppler used: Yes. COMPARISON: Ultrasound dated 01/21/22 FINDINGS: UTERUS: - Appearance: Enlarged, uterus. - Size (cm): 17.9 x 8.3 x 12.5 - Endometrial Complex (if present): Thickened and heterogeneous without significant vascularity on co janna Doppler imaging. Thickness in cm (if measured) = 2.5 cm - Mass or cyst: None. - Additional findings: None. RIGHT ADNEXA: Not evaluated. LEFT ADNEXA: Not evaluated. URINARY BLADDER: No significant abnormality. FREE FLUID: None. ADDITIONAL FINDINGS: None. IMPRESSION: 1. Enlarged uterus. 2. Thickened endometrial complex in a uterus. It is difficult to distinguish a uterus containing clots from retained products of conception. Clinical correlation is recommended. No increased vascularity on color Doppler imaging. Signer Name: Shila Berman MD Signed: 01/23/2022 6:22 PM Workstation Name: [id number]
[2022-01-23] MEDS: HYDROcodone/ACETAMINOPHEN 5-325 MG TAB PO PRN (21:15)
[2022-01-24] MEDS: AMOXICILLIN/K CLAV 875/125MG TAB PO SCH ×2 (04:56→15:56)
--- NOTE | 2022-01-24 10:19 | Progress Note ---
Assessment and Plan A: day 2 S/P . Anemia. Preeclampsia. Depression. Leukocytosis (resolving). P: Oral iron supplementation BID. Psych to see patient. Continue to monitor BPs. Continue oral Augmentin; repeat CBC tomorrow AM. Anticipate discharge home tomorrow. Subjective - Subjective Date of service: 01/24/22 Principal diagnosis: PPD#2 Patient reports: appetite normal, voiding normally, pain well controlled, flatus, ambulating normally, no dizzy ambulation, no nauseated Reynolds: doing well, nursing well Objective - Vital Signs Latest vital signs: Vital Signs Temp Pulse Resp BP Pulse Ox Pulse Ox 01/24/22 09:12 98.3 F 97 H 18 111/66 99 01/24/22 08:00 99 01/23/22 23:27 97.7 F 86 20 112/68 98 01/23/22 22:15 18 01/23/22 21:15 18 01/23/22 21:00 99 01/23/22 15:33 98.2 F 92 H 18 115/75 100 Intake and Output 01/23/22 01/24/22 01/24/22 23:59 07:59 15:59 Intake Total 120 600 Balance 120 600 Intake: Oral 120 Intake, Free Water 600 Other: Total, Intake Amount 120 # Voids Void 3 2 - Exam Cardiovascular: Present: Regular rate Lungs: Present: Clear to auscultation Abdomen: Present: normal appearance, soft. Absent: distention, tenderness, guarding, rigidity Uterus: Present: normal, firm, tenderness (mild fundal tenderness), fundal height below umbilicus. Absent: bogginess Extremities: Absent: tenderness - Labs Labs: Abnormal lab results 01/23/22 Range/Units 15:56 WBC 13.4 H (4.5-11.0) K/mm3 RBC 3.19 L (3.65-5.03) M/mm3 Hgb 7.8 L (10.1-14.3) gm/dl Hct 24.2 L (30.3-42.9) % MCV 76 L (79-97) fl MCH 24 L (28-32) pg RDW 18.5 H (13.2-15.2) % [place] # (Auto) 0.9 H (0.0-0.8) K/mm3 Seg Neutrophils % 76.6 H (40.0-70.0) % Seg Neutrophils # 10.3 H (1.8-7.7) K/mm3
[2022-01-24] MEDS: PRENATAL VIT27-FE FUMARATE-FOLIC ACID VIT TAB PO SCH (10:20)
[2022-01-24] MEDS: DOCUSATE SODIUM 100 MG CAP PO SCH (10:20)
[2022-01-24] MEDS ORDERED: FERROUS SULFATE 325 MG TAB PO SCH (11:00)
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
[2022-01-24 12:27] LABS: Bacteria,Urine 1+ /HPF (Negative); Bilirubin,Urine NEG (Negative); Blood,Urine LG (Negative); Color,Urine Yellow (Yellow); Mucus,Urine FEW /HPF; Protein,Urine <15 mg/dL mg/dL (Negative); Urobilinogen,Urine < 2.0 mg/dL (<2.0)
[2022-01-24 14:57] LABS: Basophils # (Auto) 0.2 K/mm3 (0.0-0.1); Basophils % (Auto) 1.6 % (0.0-1.8); Eosinophils # (Auto) 0.1 K/mm3 (0.0-0.4); Eosinophils % (Auto) 0.9 % (0.0-4.3); Hematocrit 21.7 % (30.3-42.9); Hemoglobin 7.4 gm/dl (10.1-14.3); Lymphocytes # (Auto) 1.6 K/mm3 (1.2-5.4); Lymphocytes % (Auto) 15.7 % (13.4-35.0); Mean Corpuscular HGB Conc 34 % (30-34); Mean Corpuscular Volume 76 fl (79-97); Monocytes # (Auto) 0.5 K/mm3 (0.0-0.8); Monocytes % (Auto) 4.9 % (0.0-7.3); Platelet Count 150 K/mm3 (140-440); Red Blood Count 2.85 M/mm3 (3.65-5.03); Red Cell Distribution Width 17.9 % (13.2-15.2)
--- NOTE | 2022-01-24 16:51 | Event Note ---
Date: 01/24/22 Patient desires discharge home today. Patient has been seen and cleared by psych. She plans to follow up with outpatient psych in 7-14 days. Discussed with patient discharge instructions and warning signs. Advised patient to take vitamins and iron supplements at home (Rx for vitamin and iron supplements left on chart for patient). Advised patient to complete course of augmentin at home (MD has already left Rx for augmentin on pt. chart). Advised patient to avoid intercourse, lifting, and housework. Advised patient to follow up at [facility] in 5 days. Patient voiced understanding of all instructions.
--- NOTE | 2022-01-24 16:56 | Discharge Summary ---
Providers - Providers Date of Admission: 01/21/22 10:39 Date of discharge: 01/24/22 Attending physician: ANNAMARIA SORTO MD 01/23/22 18:00 Consult to Mental Health [CONS] Routine Reason For Exam: [place] scale 10 Primary care physician: ANNAMARIA SORTO MD Hospitalization Reason for admission: active labor Delivery: Laceration: 2nd degree Other procedures: none complications: none Discharge diagnosis: IUP at term delivered baby: male Pertinent studies: Labs Hospital course: Stable hospital course Condition at discharge: Good Disposition: HOME / SELF CARE / HOMELESS - Discharge Diagnoses (1) Term delivered Status: Acute (2) Anemia Status: Acute Plan - Discharge Medications Prescriptions: Amoxicillin/Potassium Clav [Augmentin 875-125 Tablet] 1 each PO BID 5 Days #10 Ferrous Sulfate [Iron 325 MG] 325 mg PO TID 30 Days #90 Vit-Fe Fumar-FA [ Vitamin] 1 tab PO QDAY 30 Days #30 tablet - Provider Discharge Summary Activity: routine, no sex for 6 weeks, no heavy lifting 4 weeks, no strenuous exercise Diet: routine Instructions: routine Additional instructions: Continue vitamin and iron supplements daily. Complete course of augmentin prescribed by MD. Follow up at [facility] in 5 days. Follow up with outpatient psych in 7-14 days. Call your doctor immediately for: * Fever > 100.5 * Heavy vaginal bleeding ( >1 pad per hour) * Severe persistent headache * Shortness of breath * Reddened, hot, painful area to leg or breast - Follow up plan Follow up: MANISH DUFF CNM [Advanced Practice Nurse] - 01/29/22 Forms: [facility] Discharge Summary
[2022-01-24 19:33] VITALS: BP 161/81
== END 2022-01-24 17:30 | disposition home or self-care (01) | DRG 775 ==
LOC: TRG 03:12 → APU 03:14 → LD 08:04 → TRG 10:25 → LD 10:39 → OB 01-22 01:38
PROVIDERS: ADMIT Obstetrics & Gynecology Gynecology; ATTEND Obstetrics & Gynecology Gynecology
PROC: 10E0XZZ Delivery of Products of Conception, External Approach (ICD-10-PCS; principal; 2022-01-22)
PROC: 0KQM0ZZ Repair Perineum Muscle, Open Approach (ICD-10-PCS; 2022-01-22)
PROC: 0W8NXZZ Division of Female Perineum, External Approach (ICD-10-PCS; 2022-01-22)
PROC: 3E0R3BZ Introduction of Anesthetic Agent into Spinal Canal, Percutaneous Approach (ICD-10-PCS; 2022-01-22)
PROC: 00HU33Z Insertion of Infusion Device into Spinal Canal, Percutaneous Approach (ICD-10-PCS; 2022-01-22)
DX: O14.94 Unspecified pre-eclampsia, complicating childbirth (principal); O69.81X0 Labor and delivery complicated by cord around neck, without compression, not applicable or unspecified; Z3A.39 39 weeks gestation of pregnancy; Z37.0 Single live birth; Z20.822 Contact with and (suspected) exposure to COVID-19; O70.1 Second degree perineal laceration during delivery; O90.81 Anemia of the puerperium; O99.344 Other mental disorders complicating childbirth; F32.9 Major depressive disorder, single episode, unspecified; D72.829 Elevated white blood cell count, unspecified; O99.13 Other diseases of the blood and blood-forming organs and certain disorders involving the immune mechanism complicating the puerperium
CPT/HCPCS: 36415; 76816; 76857; 80053; 81001; 82570; 83615; 84156; 84550; 85025; 85027; 86850; 86900; 86901; 87086; 99211; G0378; J3490; G0463; J2590; J7120; U0003